=== PATIENT | male | born 1985 | race Asian ===

== ENCOUNTER 2023-03-05 09:20 | Outpatient (CLI) | payer SELFPAY ==
--- NOTE | 2023-03-05 10:15 | XRAY Report ---
PROCEDURE: Chest 2 View X-Ray INDICATIONS: TB SKIN TEST TECHNIQUE: 2 views of the chest were acquired. COMPARISON: None. FINDINGS: Surgical changes and devices: None. Lungs and pleura: No pleural effusions or pneumothorax. Lungs are clear. Mediastinum: Mediastinal contours appear normal. Heart size is normal. Bones and chest wall: No suspicious bony lesions. Overlying soft tissues appear unremarkable. IMPRESSION: No acute cardiopulmonary process. Reviewed by: Jacquelyn Stanley MD on 03/05/2023 10:13 AM PDT Approved by: Jacquelyn Stanley MD on 03/05/2023 10:13 AM PDT Station ID: [id number]
== END 2023-03-05 09:21 | disposition home or self-care (01) ==
LOC: DI 09:20
PROVIDERS: ATTEND Registered Nurse
DX: R76.11 Nonspecific reaction to tuberculin skin test without active tuberculosis (principal)